=== PATIENT | male | born 1995 | race Caucasian/White ===

== ENCOUNTER 2018-05-20 06:11 | Day surgery (SDC) | payer OTHER ==
[2018-05-19 14:32] VITALS: BMI 28.8
[2018-05-20] MEDS ORDERED: Famotidine/PF 20 mg/2ml Vial ONE (06:34)
[2018-05-20] MEDS ORDERED: Fentanyl 100 MCG/2 ML VIAL ONE ×2 (06:34→09:24)
[2018-05-20] MEDS ORDERED: Bacitracin Zinc Ointment 30 gm TUBE ONE (07:03)
[2018-05-20] MEDS ORDERED: Bupivacaine 0.25% HCL 30 ML VIAL ONE (07:03)
[2018-05-20] MEDS ORDERED: Bupivacaine/Epinephrine 0.25% 30 ML VIAL ONE (07:03)
[2018-05-20] MEDS ORDERED: CEFAZOLIN 2 GM/50 ML BAG ONE (07:07)
[2018-05-20] MEDS ORDERED: Midazolam HCl 2 mg/2 ml Vial ONE (07:27)
--- NOTE | 2018-05-20 09:37 | OP ---
DATE OF OPERATION: 05/20/2018 PREOPERATIVE DIAGNOSES: Laceration of the extensor pollicis longus tendon at the right wrist. POSTOPERATIVE DIAGNOSIS: Laceration of the extensor pollicis longus tendon at the right wrist with l aceration of the extensor carpi radialis brevis and extensor carpi radialis longus tendons at the rig ht wrist. PROCEDURE: Exploration of the laceration with repair of the extensor pollicis longus tendon, thumb e xtensor carpi radialis brevis tendon and extensor carpi radialis longus tendons of the right wrist. SURGEON: Kevin Mejia M.D. ANESTHESIA: General. TECHNIQUE: The patient was given preoperative IV antibiotics, taken to the operating room and placed in supine position. Satisfactory general anesthesia was performed. The right upper extremity was s terilely prepped and draped in usual fashion. After exsanguination, tourniquet at the right arm was raised to 250 mmHg. The patient had previous laceration over the dorsum of the right wrist transvers ryan. This wound was bluntly opened. The distal tendon of the extensor pollicis longus was located, but the proximal tendon could not and the laceration had to be extended more proximally. The extenso r compartments were explored. The first compartment, the two tendons were intact. The second compar tment, both the extensor carpi radialis longus and extensor carpi radialis brevis tendons were comple tely cut. Those 2 tendon ends were located proximally and distally and repaired using 2-0 FiberWire with a modified Magaly type repair. The extensor pollicis longus muscle had retracted proximally. It was located and the tendon was repaired also with 2-0 FiberWire in the same fashion in a modified Christiansen repair. The fourth compartment was completely intact. No other tendons were lacerated. Th e wound was then copiously irrigated with antibiotic solution and closed using 0 Vicryl for the fat a nd subcutaneous tissue. Skin was closed with 3-0 Rapide and the wound was infiltrated with 30 mL of 0.25% Marcaine with epinephrine. Sterile dressing was applied along with a short arm thumb spica spl int with the wrist in extension and the MP and IP joints of the thumb in extension. The tourniquet w as released. The patient was awakened, extubated, and transferred to the recovery room in stable con dition. ESTIMATED BLOOD LOSS: None. COMPLICATIONS: None. TOURNIQUET TIME: 66 minutes. Follow up in my office in 1 week.
[2018-05-20] MEDS ORDERED: ePHEDrine/0.9% NaCl/PF SYRINGE 50 mg/10 ml ONE (16:26)
[2018-05-20] MEDS ORDERED: Ondansetron PF 4 MG/2 ML Vial ONE (16:26)
[2018-05-20] MEDS ORDERED: PROPOFOL 200 MG/20 ML VIAL ONE (16:26)
[2018-05-20] MEDS ORDERED: Dexamethasone 20 MG/5 ML VIAL ONE (16:26)
[2018-05-20] MEDS ORDERED: Lidocaine 1% PF 5 ML VIAL ONE (16:26)
[2018-05-20] MEDS ORDERED: Ketorolac Tromethamine 30 MG/ML VIAL ONE (16:26)
== END 2018-05-20 11:00 | disposition home or self-care (01) ==
LOC: SDC 06:11
PROVIDERS: ATTEND Orthopaedic Surgery
PROC: 0LM70ZZ Reattachment of Right Hand Tendon, Open Approach (ICD-10-PCS; principal; 2018-05-20)
DX: S66.221A Laceration of extensor muscle, fascia and tendon of right thumb at wrist and hand level, initial encounter (principal); S66.821A Laceration of other specified muscles, fascia and tendons at wrist and hand level, right hand, initial encounter; S61.511A Laceration without foreign body of right wrist, initial encounter; Z88.8 Allergy status to other drugs, medicaments and biological substances; X99.1XXA Assault by knife, initial encounter
CPT/HCPCS: 96374; J0131; J1100; J1885; J2001; J2250; J2405; J2704; J3010; S0020; S0028